=== PATIENT | female | born 1970 | race Caucasian/White ===

== ENCOUNTER 2025-07-22 17:12 | Emergency (ER) | payer SELFPAY ==
[~2025-07-22] VITALS: Ht 170.1 cm; Wt 74.8 kg
[~2025-07-22 17:12] MED LIST: TRAMADOL HCL50 MG PO
[2025-07-22] MEDS ORDERED: MIXED AMPHETAMI20 MG PO (17:39)
[2025-07-22] MEDS ORDERED: LISINOPRIL-HCT1 EACH PO (17:39)
== END 2025-07-22 20:02 | disposition left against medical advice (07) ==
LOC: ED 17:12
DX: S63.501A Unspecified sprain of right wrist, initial encounter (principal); Z79.899 Other long term (current) drug therapy; W01.0XXA Fall on same level from slipping, tripping and stumbling without subsequent striking against object, initial encounter; Y93.89 Activity, other specified; Y92.89 Other specified places as the place of occurrence of the external cause; Y99.8 Other external cause status